=== PATIENT | male | born 1965 | race Hispanic/Latino ===

== ENCOUNTER 2020-11-19 10:17 | Outpatient (CLI) | payer MEDICARE, OTHER | END 2020-11-19 10:18 | disposition home or self-care (01) | LOC: CSHWCC 10:17 | PROVIDERS: ATTEND Nurse Practitioner Family | DX: I87.331 Chronic venous hypertension (idiopathic) with ulcer and inflammation of right lower extremity (principal); L97.311 Non-pressure chronic ulcer of right ankle limited to breakdown of skin; L97.811 Non-pressure chronic ulcer of other part of right lower leg limited to breakdown of skin; I87.332 Chronic venous hypertension (idiopathic) with ulcer and inflammation of left lower extremity; L97.421 Non-pressure chronic ulcer of left heel and midfoot limited to breakdown of skin; L97.521 Non-pressure chronic ulcer of other part of left foot limited to breakdown of skin; L97.821 Non-pressure chronic ulcer of other part of left lower leg limited to breakdown of skin; R60.9 Edema, unspecified; B18.1 Chronic viral hepatitis B without delta-agent; I10 Essential (primary) hypertension; I70.203 Unspecified atherosclerosis of native arteries of extremities, bilateral legs; I73.9 Peripheral vascular disease, unspecified; K59.00 Constipation, unspecified; M81.0 Age-related osteoporosis without current pathological fracture; Z21 Asymptomatic human immunodeficiency virus [HIV] infection status | CPT/HCPCS: 97139; G0463; 99213 ==

== ENCOUNTER 2020-12-14 12:10 | Outpatient (CLI) | payer MEDICAID, MEDICARE, OTHER | END 2020-12-14 12:11 | disposition home or self-care (01) | LOC: CSHWCC 12:10 | PROVIDERS: ATTEND Nurse Practitioner Family | DX: I87.333 Chronic venous hypertension (idiopathic) with ulcer and inflammation of bilateral lower extremity (principal); L97.311 Non-pressure chronic ulcer of right ankle limited to breakdown of skin; L97.811 Non-pressure chronic ulcer of other part of right lower leg limited to breakdown of skin; L97.421 Non-pressure chronic ulcer of left heel and midfoot limited to breakdown of skin; L97.521 Non-pressure chronic ulcer of other part of left foot limited to breakdown of skin; L97.821 Non-pressure chronic ulcer of other part of left lower leg limited to breakdown of skin; R60.9 Edema, unspecified; B18.1 Chronic viral hepatitis B without delta-agent; B18.2 Chronic viral hepatitis C; I70.203 Unspecified atherosclerosis of native arteries of extremities, bilateral legs; K59.00 Constipation, unspecified; M81.0 Age-related osteoporosis without current pathological fracture; Z21 Asymptomatic human immunodeficiency virus [HIV] infection status | CPT/HCPCS: 97139; G0463; 99213 ==